=== PATIENT | male | born 1995 | race Two or more races ===

== ENCOUNTER 2018-03-22 12:57 | Emergency (ER) | payer OTHER ==
[2018-03-22 13:18] VITALS: BP 124/75; PULSE 64; TEMP 98.3; BMI 36.4
--- NOTE | 2018-03-22 13:53 | PDOC ---
History of Present Illness - General History Source: Patient <Michell Garner - Last Filed: 03/22/18 14:44> - General History Source: Patient (The patient is a 22 year old male, with no significant PMH, who presents to the emergency department with 1 day of right hand pain and swelling. The patient states he was at the arcade on a punching arcade machine when he missed the target and punched his right hand into the machine. The patient states he has pain, tenderness and swelling to the right hand. He denies taking any pain medications for the right hand pain. The patient denies any weakness or loss of sensation. He denies any neck or back pain. He denies any head injury or loss of consciousness. ) Exam Limitations: No Limitations <Partha Terry - Last Filed: 03/22/18 15:09> - General Chief Complaint: Pain, Acute Stated Complaint: RIGHT HAND PAIN Time Seen by Provider: 03/22/18 13:43 Past History - Past Medical History COPD: No Other medical history: DENIES - Suicide/Smoking/Psychosocial Hx Smoking History: Current every day smoker Number of Cigarettes Smoked Daily: 10 Information on smoking cessation initiated: Yes 'Breaking Loose' booklet given: 03/22/18 Hx Alcohol Use: Yes Drug/Substance Use Hx: No Substance Use Type: Alcohol <Michell Garner - Last Filed: 03/22/18 14:44> <Partha Terry - Last Filed: 03/22/18 15:09> - Past Medical History Allergies/Adverse Reactions: Allergies Allergy/AdvReac Type Severity Reaction Status Date / Time No Known Allergies Allergy Verified 03/22/18 12:58 Home Medications: Ambulatory Orders NK [No Known Home Medication] 03/22/18 Review of Systems - Review of Systems Constitutional: No: Chills, Diaphoresis, Fever, Weakness HEENTM: No: Blurred Vision, Ear Pain, Nose Congestion, Throat Pain, Difficulty Swallowing Respiratory: No: Cough, Shortness of Breath, SOB with Exertion, Wheezing Cardiac (ROS): No: Chest Pain, Edema, Lightheadedness, Palpitations, Syncope ABD/GI: No: Abdominal Distended, Constipated, Diarrhea, Nausea, Vomiting : No: Burning, Dysuria, Frequency, Flank Pain, Urgency Musculoskeletal: Yes: Other (Right hand pain and swelling. ). No: Back Pain, Neck Pain Integumentary: No: Erythema, Rash, Sweating Neurological: No: Numbness, Tingling, Weakness Psychiatric: No: Anxiety, Depression Endocrine: No: Excessive Sweating, Intolerance to Cold, Intolerance to Heat, Unexplained Weight Gain, Unexplained Weight Loss Hematologic/Lymphatic: No: Anemia, Blood Clots <HarrisonPartha - Last Filed: 03/22/18 15:09> *Physical Exam - Vital Signs Last Vital Signs Temp Pulse Resp BP Pulse Ox 98.3 F 64 16 124/75 100 03/22/18 12:58 03/22/18 12:58 03/22/18 12:58 03/22/18 12:58 03/22/18 12:58 <Michell Garner S - Last Filed: 03/22/18 14:44> - Vital Signs Last Vital Signs Temp Pulse Resp BP Pulse Ox 98.3 F 64 16 124/75 100 03/22/18 12:58 03/22/18 12:58 03/22/18 12:58 03/22/18 12:58 03/22/18 12:58 - Physical Exam General Appearance: Yes: Nourished, Appropriately Dressed HEENT: positive: EOMI, DION, Normal ENT Inspection, Normal Voice, Symmetrical, TMs Normal, Pharynx Normal Neck: positive: Trachea midline, Normal Thyroid, Supple. negative: Tender Respiratory/Chest: positive: Lungs Clear, Normal Breath Sounds. negative: Respiratory Distress, Accessory Muscle Use, Rales, Rhonchi, Wheezing Cardiovascular: positive: Regular Rhythm, Regular Rate, S1, S2. negative: Edema , JVD, Murmur Gastrointestinal/Abdominal: positive: Normal Bowel Sounds, Soft. negative: Organomegaly, Guarding, Rebound, Tenderness Lymphatic: negative: Adenopathy, Tenderness Musculoskeletal: negative: CVA Tenderness, CVA Tenderness (R), CVA Tenderness (L ), Vertebral Tenderness Extremity: positive: Normal Capillary Refill, Normal Range of Motion, Tender ((+ ) Tenderness to dorsal aspect of middle right hand. ), Pelvis Stable, Other ( Neurovascular is intact. ). negative: Cyanosis, Calf Tenderness Integumentary: positive: Normal Color, Dry, Warm Neurologic: positive: bulldozer/loader/compactor/scraper II-XII NML intact, Fully Oriented, Alert, Normal Mood/ Affect, Normal Response, Motor Strength 5/5 <Partha Terry - Last Filed: 03/22/18 15:09> ED Treatment Course - RADIOLOGY Radiology Studies Ordered: Category Date Time Status HAND- RIGHT [RAD] Stat Radiology 03/22/18 12:59 Taken <Michell Garner - Last Filed: 03/22/18 14:44> - RADIOLOGY Radiology Studies Ordered: 03/22/18 15:05 EXAM#: TYPE/EXAM: RESULT: [id number] RAD/HAND- RIGHT Right hand: Trauma. Pain. Imaging reveals a mid right fourth metacarpal fracture with swelling. The other bones are intact. There is dorsal angulation at the fracture site. There is no sign of a foreign body or soft tissue air. Impression : Fourth metacarpal fracture. Reported By: Deion Mcmullen MD <Partha Terry - Last Filed: 03/22/18 15:09> Medical Decision Making - Medical Decision Making 03/22/18 15:09 X-ray diagnosed 4th metal carpal fracture. Patient has been advised to follow up with hand specialist in 1-3 days and given the proper information for follow up. <Partha Terry - Last Filed: 03/22/18 15:09> *DC/Admit/Observation/Transfer - Discharge Dispostion Decision to Admit order: No <Michell Garner - Last Filed: 03/22/18 14:44> - Attestations Scribe Attestion: 03/22/18 15:01 Documentation prepared by Partha Terry, acting as medical office professional instructor for Michell Garner MD. <Partha Terry - Last Filed: 03/22/18 15:09> Diagnosis at time of Disposition: Fracture of hand Qualifiers: Encounter type: initial encounter Fracture type: open Laterality: right Qualified Code(s): S62.91XB - Unspecified fracture of right wrist and hand, initial encounter for open fracture - Discharge Dispostion Disposition: HOME Condition at time of disposition: Stable - Referrals Referrals: Everett Clark MD [Staff Physician] - - Patient Instructions Printed Discharge Instructions: DI for a Hand Fracture - Post Discharge Activity Forms/Work/School Notes: Back to Work
== END 2018-03-22 14:48 | disposition home or self-care (01) ==
LOC: FER 12:57
DX: S62.394A Other fracture of fourth metacarpal bone, right hand, initial encounter for closed fracture (principal); M79.89 Other specified soft tissue disorders; W22.09XA Striking against other stationary object, initial encounter; Y93.89 Activity, other specified; Y92.9 Unspecified place or not applicable; F17.210 Nicotine dependence, cigarettes, uncomplicated
CPT/HCPCS: 73130-TC-RT-FY; 99282-25